=== PATIENT | male | born 1990 | race Caucasian/White ===

== ENCOUNTER 2016-06-19 23:05 | Emergency (ER) | payer BC, OTHER ==
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
--- NOTE | 2016-06-20 00:49 | ED ORDER SUMMARY ---
..... Patient: GAVIN HUMMEL OrderSheet [facility] VisitID: [id number] [address] [place] [address] 26y, M Registration Date/Time: 06/19/2016 ORDER SHEET Weight: 124.7 kg (stated) Allergies: No Known Drug Allergy GENERAL ORDERS: MEDICATION ORDERS: Afrin Nasal [place] 2 sprays (NOW, affected nare) (00:34 06/20/2016 Bola SAMSON) (Ack 0:43 JQuivey R.N.) (Cancelled: Other0:46 JQuivey R.N.) IV FLUIDS: ORDER SHEET NOTES: [Electronically signed by Kwame Rice R.N. (03:07 06/20/2016)] [Electronically signed by Francisco Cottrell MD (05:22 06/22/2016)] [Electronically locked/signed by Kwame Rice R.N. (03:07 06/20/2016)]
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
--- NOTE | 2016-06-20 00:49 | ED ORDER SUMMARY ---
..... Patient: GAVIN HUMMEL OrderSheet [facility] VisitID: [id number] [address] [place] [address] 26y, M Registration Date/Time: 06/19/2016 ORDER SHEET Weight: 124.7 kg (stated) Allergies: No Known Drug Allergy GENERAL ORDERS: MEDICATION ORDERS: Afrin Nasal [place] 2 sprays (NOW, affected nare) (00:34 06/20/2016 Bola SAMSON) (Ack 0:43 JQuivey R.N.) (Cancelled: Other0:46 JQuivey R.N.) IV FLUIDS: ORDER SHEET NOTES: [Electronically signed by Kwame Rice R.N. (03:07 06/20/2016)] [Electronically signed by Francisco Cottrell MD (05:22 06/22/2016)] [Electronically locked/signed by Kwame Rice R.N. (03:07 06/20/2016)]
--- NOTE | 2016-06-22 05:22 | ED MED RECONCILIATION SUMMARY ---
Patient: GAVIN HUMMEL Medication Reconciliation Report [facility] VisitID: [id number] [address] [place] [address] 26y, M Registration Date/Time: 06/19/2016 Weight: 124.7 kg Height/Length: 72 in. BMI: 37.3 ALLERGIES: No Known Drug Allergy The patient's Home Medications are listed below: NONE. The source(s) of the original Home Medication information: patient The following Medications were given to the patient in the Emergency Department: None. The following Medications were prescribed to the patient: None.
--- NOTE | 2016-06-22 05:22 | ED MED RECONCILIATION SUMMARY ---
Patient: GAVIN HUMMEL Medication Reconciliation Report [facility] VisitID: [id number] [address] [place] [address] 26y, M Registration Date/Time: 06/19/2016 Weight: 124.7 kg Height/Length: 72 in. BMI: 37.3 ALLERGIES: No Known Drug Allergy The patient's Home Medications are listed below: NONE. The source(s) of the original Home Medication information: patient The following Medications were given to the patient in the Emergency Department: None. The following Medications were prescribed to the patient: None.
--- NOTE | 2016-06-22 05:22 | ED MAR SUMMARY ---
..... Medication Administration Record [facility] [address] [place], [place] [id number] Patient: GAVIN UHMMEL Visit ID: [id number] 26y, M Weight: 124.7 kg Height/Length: 72 in BMI: 37.3 ALLERGIES: No Known Drug Allergy
--- NOTE | 2016-06-22 05:22 | ED MAR SUMMARY ---
..... Medication Administration Record [facility] [address] [place] [id number] Patient: GAVIN HUMMEL Visit ID: [id number] 26y, M Weight: 124.7 kg Height/Length: 72 in BMI: 37.3 ALLERGIES: No Known Drug Allergy
--- NOTE | 2016-06-22 05:22 | ED DISCHARGE INSTRUCTIONS ---
Patient: GAVIN HUMMEL June General Instructions [facility] VisitID: [id number] [address] [place] [address] 26y, M Registration Date/Time: 06/19/2016 nasal congestion. (Electronically signed by Francisco Cottrell MD 06/22/2016 5:22)
--- NOTE | 2016-06-22 05:22 | ED DISCHARGE INSTRUCTIONS ---
Patient: GAVIN HUMMEL June General Instructions [facility] VisitID: [id number] [address] [place] [address] 26y, M Registration Date/Time: 06/19/2016 nasal congestion. (Electronically signed by Francisco Cottrell MD 06/22/2016 5:22)
== END 2016-06-20 00:49 | disposition left against medical advice (07) ==
LOC: ED SRH 23:05
DX: J34.89 Other specified disorders of nose and nasal sinuses (principal); K21.9 Gastro-esophageal reflux disease without esophagitis; F17.210 Nicotine dependence, cigarettes, uncomplicated